=== PATIENT | male | born 1990 | race Caucasian/White ===

== ENCOUNTER 2016-09-06 11:35 | Emergency (ER) | payer OTHER ==
[2016-09-06 11:45] VITALS: BP 155/85
--- NOTE | 2016-09-06 11:54 | UC ---
Complaint Male HPI - HPI Summary HPI Summary: concern about STDs, has no symptoms , having a new partner, no hx of STDs - History of Current Complaint Chief Complaint: UCSTDScreening Stated Complaint: PERSONAL Time Seen by Provider: 09/06/16 11:39 Hx Obtained From: Patient Severity Currently: None Location: None Aggravating Factor(s): Nothing Associated Signs And Symptoms: Positive: Negative - Allergies/Home Medications Allergies/Adverse Reactions: Allergies Allergy/AdvReac Type Severity Reaction Status Date / Time No Known Allergies Allergy Verified 09/06/16 11:41 Home Medications: Home Medications NK [No Home Medications Reported] 09/06/16 [History Confirmed 09/06/16] PMH/Surg Hx/FS Hx/Imm Hx Previously Healthy: Yes - Surgical History Surgical History: None - Family History Known Family History: Negative: Diabetes - Social History Alcohol Use: Occasionally Substance Use Type: None Smoking Status (MU): Never Smoked Tobacco - Immunization History Most Recent Influenza Vaccination: May 2016 Review of Systems Constitutional: Negative Skin: Negative Eyes: Negative ENT: Negative Respiratory: Negative Cardiovascular: Negative Gastrointestinal: Negative All Other Systems Reviewed And Are Negative: Yes Physical Exam Triage Information Reviewed: Yes Appearance: Well-Appearing, No Pain Distress, Well-Nourished Vital Signs: Initial Vital Signs Temp 97.9 F 09/06/16 11:40 Pulse 80 09/06/16 11:40 Resp 16 09/06/16 11:40 BP 155/85 09/06/16 11:40 Pulse Ox 100 09/06/16 11:40 Vital Signs Reviewed: Yes Eyes: Positive: Conjunctiva Clear ENT: Positive: Normal ENT inspection, Hearing grossly normal, Pharynx normal Neck: Positive: Supple, Nontender, No Lymphadenopathy Respiratory: Positive: Chest non-tender, Lungs clear, Normal breath sounds Cardiovascular: Positive: RRR, No Murmur, Pulses Normal Abdominal Exam: Normal Abdomen Description: Positive: Nontender. Negative: CVA Tenderness (R), CVA Tenderness (L), Distended, Guarding Bowel Sounds: Positive: Present Complaint Male Course/Dx - Differential Dx/Diagnosis Provider Diagnoses: CONCERN ABOUT STDS WITHOUT ANY SYMPTOMS Discharge - Discharge Plan Condition: Stable Disposition: HOME Patient Education Materials: Sexually Transmitted Diseases (ED) Additional Instructions: CALL THE OFFICE IN 2 DAYS FOR THE TEST RESULTS
== END 2016-09-06 12:07 | disposition home or self-care (01) ==
LOC: UCCORT 11:35
DX: Z11.3 Encounter for screening for infections with a predominantly sexual mode of transmission (principal); Z11.4 Encounter for screening for human immunodeficiency virus [HIV]
CPT/HCPCS: 36415; 86703; 87491; 87591; 99201; G0463